=== PATIENT | male | born 1935 | race Caucasian/White ===

== ENCOUNTER 2019-02-09 11:54 | Inpatient (IN) | payer MEDICARE, MEDICAID ==
[~2019-02-09] VITALS: Ht 162.6 cm; Wt 61.7 kg
[~2019-02-09 11:54] MED LIST: ATOR20TA PO; CEFT1VIA15 IV; CHOL10002 PO; CLOP75TA15 PO; DULO30CA52 PO; GABA-534 PO; GLIM4TAB37 PO; LEVO50TA8 PO; METF-440 PO; OLME40TA12 PO; PREG75CA PO; TAMS0.4C34 PO
--- NOTE | 2019-02-09 12:03 | NUR ---
"bib family for confusion, visual hallucinations x 8 days. hx frequent UTI" pt awake, alert, -sob. nad noted, vss, pending md lenz
[2019-02-09 12:26] LABS: BASOPHILS # (AUTO) 0.1 /CMM (0.0-0.2); BASOPHILS % (AUTO) 0.8 % (0.0-2.0); EOSINOPHILS % (AUTO) 2.8 % (0.0-6.0); HEMATOCRIT 36 % (39-51); HEMOGLOBIN 12.2 g/dL (13.5-17.5); LYMPHOCYTES # (AUTO) 3.6 /CMM (0.8-4.8); LYMPHOCYTES % (AUTO) 37.2 % (20.0-44.0); MEAN CORPUSCULAR HGB CONC 34 g/dl (31.0-36.0); MEAN CORPUSCULAR VOLUME 92 fL (80-96); MONOCYTES # (AUTO) 0.6 /CMM (0.1-1.30); MONOCYTES % (AUTO) 6.6 % (2.0-12.0); NEUTROPHILS % (AUTO) 52.6 % (43.0-81.0); PLATELET COUNT (AUTO) 249 /CMM (150-450); RED BLOOD CELL COUNT(AUTO) 3.96 MIL/uL (4.5-6.0); WHITE BLOOD COUNT (AUTO) 9.6 K/uL (4.3-11.0)
[2019-02-09] MEDS ORDERED: IV NS 0.9% 1,000 ML BAG IV ONE (12:30)
[2019-02-09 12:34] LABS: CALCIUM, SERUM 9.6 mg/dL (8.5-10.1); CARBON DIOXIDE 22 mmol/L (21-32); CHLORIDE 102 mmol/L (98-107); CREATININE 1.6 mg/dL (0.6-1.3); GLUCOSE 312 mg/dL (74-106); POTASSIUM 4.6 mmol/L (3.5-5.1); SODIUM SERUM 134 mmol/L (136-145); UREA NITROGEN, BLOOD 26 mg/dL (7-18)
[2019-02-09 12:40] LABS: ALANINE AMINOTRANSFERASE 17 U/L (12-78); ALBUMIN 3.1 g/dL (3.4-5.0); ALKALINE PHOSPHATASE 213 U/L (46-116); ASPARTATE AMINOTRANSFERASE 41 U/L (15-37); BILIRUBIN,DIRECT 0.1 mg/dL (0.0-0.2); BILIRUBIN,TOTAL 0.3 mg/dL (0.2-1.0); TOTAL PROTEIN, SERUM 7.2 g/dL (6.4-8.2)
[2019-02-09] MEDS ORDERED: MELO-107 PO (13:13)
[2019-02-09] MEDS ORDERED: AMLO5TAB9 PO (13:13)
[2019-02-09] MEDS ORDERED: GLIP10TA11 PO (13:13)
[2019-02-09] MEDS ORDERED: SULF1TAB48 PO (13:13)
[2019-02-09] MEDS ORDERED: FINA5TAB3 PO (13:13)
[2019-02-09] MEDS ORDERED: CETI10TA14 PO (13:13)
--- NOTE | 2019-02-09 13:51 | NUR ---
report given damon leon for holly pt will be transported to 1st floor
[2019-02-09] MEDS ORDERED: Z GUARD REMEDY 2 OZ OINT TP PRN (14:00)
[2019-02-09] MEDS ORDERED: MAGNESIUM HYDROXIDE 30 ML UDC PO PRN (14:00)
[2019-02-09] MEDS ORDERED: ONDANSETRON HCL/PF 4 MG/2 ML VIAL IVP PRN (14:00)
[2019-02-09] MEDS ORDERED: MORPHINE SULFATE INJ 2 MG/ML DISP.SYRIN IV PRN (14:00)
[2019-02-09] MEDS ORDERED: ACETAMINOPHEN 325 MG TABLET PO PRN (14:00)
[2019-02-09] MEDS ORDERED: MAG HYDROX/AL HYDROX/SIMETH 30 ML UDC PO PRN (14:00)
--- NOTE | 2019-02-09 14:25 | NUR ---
MS WINDOW GLASS CUTTER OFF NOTE: PATIENT ARRIVED TO UNIT WITH AND STAFF VIA GURNEY.UNDERSTANDS S[place] SUDANESE BUT PRIMARY LANGUAGE IS AZERBAIJANI. APPEARS COOPERATIVE AND PLEASANT. NOTED WITH LOWER EXTREMITY MILD WEAKNESS UPON TRANSFERRING TO BED. TOLERATING ROOM AIR, NO SOB AND NOT IN DISTRESS. NO PAIN REPORTED. WITH IV SITE ON RFA G18, SITE CLEAN AND SECURE. ORDERS TO BE VERIFIED AND ADMISSION ASSESSMENT TO BE MADE.
[2019-02-09] MEDS: BLOOD SUGAR DIAGNOSTIC 1 EACH STRIP VI SCH ×3 (14:30→22:01)
[2019-02-09] MEDS ORDERED: DEXTROSE 50%-WATER 50 ML DISP.SYRIN IV PRN (14:30)
--- NOTE | 2019-02-09 14:30 | NUR ---
pt transported to 1st floor
--- NOTE | 2019-02-09 15:10 | NUR ---
WEBMETHODS ARCHITECT NOTE: INFORMED BY DANIEL CEE NP ABOUT PATIENT'S CHANGE OF CONDITION DUE TO RESULTS FOUND FROM CT SCAN. PATIENT ADMITTED TO TELEMETRY AND STROKE ASSESSMENTS TO BE DONE. 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 NO BELONGINGS WERE CHECKED IN, PATIENT ASSESSED FOR SKIN, STATES THAT HE IS CLEAR EXCEPT FOR THE SCABS ON THE RIGHT FOREAM. ASSESSMENTS MADE, PATIENT IS ALERT, ORIENTED X2 BUT STATES THAT HE HAS BEEN NORMAL FOR HIM AND HAS BEEN EXHIBITING THAT BEHAVIOR FOR THE PAST COUPLE OF DAYS. VASCULAR SONOGRAPHER RESULTS IN SINUS RHYTHM WITH PVCS. PATIENT FOR FURTHER EVALUATION UNDER DR. PACKER.
[2019-02-09 16:00] VITALS: BP 111/69
--- NOTE | 2019-02-09 18:00 | NUR ---
RN NOTE: PATIENT REFUSED INSULIN DOSE
[2019-02-09] MEDS: glipiZIDE 10 MG TABLET PO SCH (18:17)
[2019-02-09] MEDS: DULOXETINE HCL 30 MG CAPSULE.DR PO SCH (18:17)
--- NOTE | 2019-02-09 19:25 | NUR ---
TELE/RN NOTES Patient in bed, Awake, A/O x2 with periods of confusion and disorientation, family at bed side, No S/S of acute distress noted, breathing even and unlabored, No SOB noted, Denies any pain at this time, on tele monitoring with sinus rhythm. IV sites with no s/s of infection, infiltration, with fluids as ordered. Safety maintained, bed at the lowest locked position, bed alarm on. Clean and dry. Will continue to monitor as per plan of care.
--- NOTE | 2019-02-09 19:30 | NUR ---
COMMUNITY INTEGRATION SPECIALIST CLOSING NOTE: PATIENT IN BED. AWAKE AND RESPONSIVE IN BED. ON FALL PRECAUTIONS DUE TO HISTORY AND BEHAVIOR OF TRYING TO GET OUT DESPITE REMINDERS GIVEN. SWALLOW EVAL AND NIHSS SCALE DONE. ASSESSMENTS YIELDED NORMAL. ON IV NS @ 75MLS/HR VIA RAC G22. NO PAIN REPORTED. DANIEL CEE NP AWARE OF PATIENT'S CURRENT CONDITION, NEUROLOGY REFERRALS MADE AND PLAVIX PRESCRIBED FOR PATIENT. BED LOCKED, LOW AND AT SEMI-SANDOVAL'S POSITION, BED ALARM ON. CALL LIGHT IN REACH. PATIENT IN STABLE CONDITION, ENDORSED TO ONCOMING SHIFT FOR GINETTE.
[2019-02-09 20:00] VITALS: BP 112/69
[2019-02-09 20:32] LABS: CREATININE, URINE 107.9 MG/DL (30.0-125.0); URINE TOTAL PROTEIN 58.9 mg/dL (0-11.9)
[2019-02-09 20:40] LABS: APPEARANCE,URINE CLEAR (CLEAR); BILIRUBIN,URINE NEGATIVE (NEGATIVE); BLOOD, URINE NEGATIVE Ery/uL (NEGATIVE); COLOR,URINE YELLOW (YELLOW); KETONES,URINE TRACE (NEGATIVE); LEUKOCYTE ESTERASE ,URINE NEGATIVE (NEGATIVE); NITRITE, URINE NEGATIVE (NEGATIVE); PROTEIN,URINE NEGATIVE (NEGATIVE); UGLUCOSE 500 MG/DL mg/dL (NEGATIVE); UROBILINOGEN,URINE 0.2 EU/dL (0.2)
[2019-02-09 20:51] LABS: BACTERIA,URINE None seen /HPF (None Seen); EOSINOPHIL,URINE None Seen; RBC,URINE 0-2 /HPF (0-2); SQUAMOUS EPITHELIAL CELL,UR Few /HPF (None Seen); WBC,URINE 0-2 /HPF (0-3)
[2019-02-09] MEDS: TAMSULOSIN 0.4 MG CAP.SR.24H PO SCH (22:07)
[2019-02-09] MEDS: *INSULIN REGULAR(HUMULIN R)HUM 100 UNIT/ML VIAL SQ PRN (22:15)
[2019-02-10] VITALS: BP 131/75
--- NOTE | 2019-02-10 00:15 | NUR ---
Patient noted with, trying to get out the bed without assistance and also trying to pull out the IV line, Assisted patient back in bed, reality orientation provided, safety maintained, encouraged to use call light for assistance, patient confused and keep trying to get out of the bed. Called Dr Junior at this time with new order for 1 to 1 sitter. Noted and carried out.
[2019-02-10 04:00] VITALS: BP 118/62
[2019-02-10] MEDS: IV NS 0.9% 1,000 ML IV PRN (05:40)
--- NOTE | 2019-02-10 06:50 | NUR ---
TELE/RN NOTES Patient remained in bed, Awake at this time, sitter at bed side, A/O x1-2 with periods of confusion and disorientation, montenegrin speaking. No S/S of acute distress noted, breathing even and unlabored, No SOB noted, Denies any pain at this time, on tele monitoring with sinus rhythm. IV sites with no s/s of infection, infiltration, with fluids as ordered. Safety maintained, bed at the lowest locked position, bed alarm on. Clean and dry. Due meds given as ordered, tolerated well. Endorse to AM shift for GINETTE.
[2019-02-10 06:53] LABS: BASOPHILS # (AUTO) 0.1 /CMM (0.0-0.2); BASOPHILS % (AUTO) 0.4 % (0.0-2.0); EOSINOPHILS % (AUTO) 1.8 % (0.0-6.0); HEMATOCRIT 35 % (39-51); HEMOGLOBIN 11.6 g/dL (13.5-17.5); LYMPHOCYTES # (AUTO) 6.7 /CMM (0.8-4.8); LYMPHOCYTES % (AUTO) 51.6 % (20.0-44.0); MEAN CORPUSCULAR HGB CONC 33 g/dl (31.0-36.0); MEAN CORPUSCULAR VOLUME 92 fL (80-96); MONOCYTES # (AUTO) 0.8 /CMM (0.1-1.30); MONOCYTES % (AUTO) 6.1 % (2.0-12.0); NEUTROPHILS # (AUTO) 5.2 /CMM (1.8-8.9); NEUTROPHILS % (AUTO) 40.1 % (43.0-81.0); PLATELET COUNT (AUTO) 249 /CMM (150-450); RED BLOOD CELL COUNT(AUTO) 3.79 MIL/uL (4.5-6.0)
--- NOTE | 2019-02-10 07:10 | NUR ---
RN INITIAL NOTE PATIENT IN BED, ASLEEP BUT EASILY AROUSABLE TO NAME AND TOUCH. AZERI SPEAKING. ON ROOM AIR. NO COMPLAINS OF ANY PAIN NOR SOB AT THIS TIME. ON TELE MONITOR, . HAS A RIGHT FA #18 WITH NS AT 75 ML/HR. AND A LEFT HAND #22. PT/OT PENDING. SITTER AT BEDSIDE. BED LOCKED AND IN LOWEST POSITION. CALL LIGHT WITHIN REACH. WILL CONTINUE TO MONITOR
[2019-02-10 07:17] LABS: ALBUMIN 2.9 g/dL (3.4-5.0); BILIRUBIN,TOTAL 0.3 mg/dL (0.2-1.0); CALCIUM, SERUM 8.9 mg/dL (8.5-10.1); CREATININE 1.3 mg/dL (0.6-1.3); PHOSPHORUS 2.6 mg/dL (2.5-4.9); POTASSIUM 4.4 mmol/L (3.5-5.1); TOTAL PROTEIN, SERUM 6.8 g/dL (6.4-8.2)
[2019-02-10 07:23] LABS: THYROID STIMULATING HORMONE 0.943 uIU/mL (0.358-3.74)
[2019-02-10 07:45] LABS: MAGNESIUM 1.2 mg/dL (1.8-2.4)
[2019-02-10] MEDS: BLOOD SUGAR DIAGNOSTIC 1 EACH STRIP VI SCH ×4 (07:55→21:26)
[2019-02-10 08:00] VITALS: BP 120/70
[2019-02-10] MEDS: PANTOPRAZOLE 40 MG TABLET.DR PO SCH (08:17)
[2019-02-10] MEDS: DULOXETINE HCL 30 MG CAPSULE.DR PO SCH ×2 (08:24→16:43)
[2019-02-10] MEDS: glipiZIDE 10 MG TABLET PO SCH ×2 (08:24→16:43)
[2019-02-10] MEDS: CLOPIDOGREL BISULFATE 75 MG TABLET PO SCH (08:26)
[2019-02-10] MEDS: LEVOTHYROXINE SODIUM 50 MCG TABLET PO SCH (08:26)
[2019-02-10] MEDS: AMLODIPINE BESYLATE 5 MG TABLET PO SCH (08:26)
[2019-02-10] MEDS: FINASTERIDE (5 MG) 5 MG TABLET PO SCH (08:27)
[2019-02-10] MEDS: Magnesium 1GM/D5W 100ML PREMIX 100 ML IV SCH ×4 (09:17→12:37)
[2019-02-10] MEDS: HYDROCODONE/APAP 5/325MG 1 EACH TABLET PO PRN (10:19)
[2019-02-10 12:00] VITALS: BP 141/75
[2019-02-10] MEDS: *INSULIN REGULAR(HUMULIN R)HUM 100 UNIT/ML VIAL SQ PRN (12:15)
[2019-02-10] MEDS: CEFTRIAXONE 1 G in IV D5W 50 ML IV SCH (14:24)
[2019-02-10 16:00] VITALS: BP 104/60
[2019-02-10] MEDS: INSULIN REGULAR, HUMAN 100 UNIT/ML 3 ML VIAL SQ PRN (17:58)
--- NOTE | 2019-02-10 18:49 | NUR ---
RN CLOSING NOTE PATIENT IN BED, AWAKE AND ALERTX4. PATIENT ACCIDENTALLY PULLED HIS IV SITE OUT. REMOVED AND CHANGED TO RIGHT HAND #22 WITH NS AT 75 ML/HR. ALL MEDS ARE GIVEN. ALL NEEDS MET. FAMILY WAS AT BEDSIDE. PATIENT INSULIN COVERAGE GIVEN. PT/OT HAS SEEN PATIENT. SWALLOW EVAL DONE. ECHO DONE. MG HAS BEEN REPLACED WITH 4 BAGS. BED LOCKED AND IN LOWEST POSITION. CALL LIGHT WITHIN REACH. WILL ENDORSE TO NOC SHIFT FOR GINETTE
--- NOTE | 2019-02-10 19:25 | NUR ---
TELE/RN NOTES Patient Received in bed, Awake, A/O x2 with periods of confusion and disorientation, sitter at bed side, No S/S of acute distress noted, breathing even and unlabored, No SOB noted, Denies any pain at this time, on tele monitoring with sinus rhythm. IV sites with no s/s of infection, infiltration, with fluids as ordered. Safety maintained, bed at the lowest locked position, bed alarm on. Clean and dry. Will continue to monitor as per plan of care.
[2019-02-10 20:00] VITALS: BP 130/78
[2019-02-10] MEDS: TAMSULOSIN 0.4 MG CAP.SR.24H PO SCH (21:27)
[2019-02-11] VITALS: BP 133/82
[2019-02-11] MEDS: IV NS 0.9% 1,000 ML IV PRN (01:25)
[2019-02-11 04:00] VITALS: BP 136/84
--- NOTE | 2019-02-11 06:55 | NUR ---
TELE/RN NOTES Patient remained in bed, Awake at this time, sitter at bed side, A/O to his base line , american speaking. No S/S of acute distress noted, breathing even and unlabored, No SOB noted, Denies any pain at this time, on tele monitoring with sinus rhythm. IV sites with no s/s of infection, infiltration, with fluids as ordered. Safety maintained, bed at the lowest locked position, bed alarm on. Clean and dry. Due meds given as ordered, tolerated well. Wll endorse to AM shift for GINETTE. Addendum: 02/11/19 at 0704 by ABDULLAHI FAIRBANKS RN Call light within reach.
[2019-02-11 07:02] LABS: BASOPHILS # (AUTO) 0.1 /CMM (0.0-0.2); BASOPHILS % (AUTO) 0.5 % (0.0-2.0); EOSINOPHILS % (AUTO) 3.5 % (0.0-6.0); HEMATOCRIT 34 % (39-51); HEMOGLOBIN 11.3 g/dL (13.5-17.5); LYMPHOCYTES # (AUTO) 5.4 /CMM (0.8-4.8); LYMPHOCYTES % (AUTO) 54.8 % (20.0-44.0); MEAN CORPUSCULAR HGB CONC 34 g/dl (31.0-36.0); MEAN CORPUSCULAR VOLUME 92 fL (80-96); MONOCYTES # (AUTO) 0.5 /CMM (0.1-1.30); MONOCYTES % (AUTO) 4.7 % (2.0-12.0); NEUTROPHILS # (AUTO) 3.6 /CMM (1.8-8.9); NEUTROPHILS % (AUTO) 36.5 % (43.0-81.0); PLATELET COUNT (AUTO) 241 /CMM (150-450); RED BLOOD CELL COUNT(AUTO) 3.66 MIL/uL (4.5-6.0); WHITE BLOOD COUNT (AUTO) 9.9 K/uL (4.3-11.0)
[2019-02-11 07:14] LABS: CALCIUM, SERUM 8.1 mg/dL (8.5-10.1); MAGNESIUM 1.6 mg/dL (1.8-2.4); PHOSPHORUS 2.1 mg/dL (2.5-4.9); POTASSIUM 4.3 mmol/L (3.5-5.1)
[2019-02-11] MEDS: LEVOTHYROXINE SODIUM 50 MCG TABLET PO SCH (07:53)
[2019-02-11] MEDS: PANTOPRAZOLE 40 MG TABLET.DR PO SCH (07:53)
[2019-02-11] MEDS: BLOOD SUGAR DIAGNOSTIC 1 EACH STRIP VI SCH ×4 (07:53→21:02)
[2019-02-11] MEDS: DULOXETINE HCL 30 MG CAPSULE.DR PO SCH ×2 (08:37→16:30)
[2019-02-11] MEDS: FINASTERIDE (5 MG) 5 MG TABLET PO SCH (08:37)
[2019-02-11] MEDS: AMLODIPINE BESYLATE 5 MG TABLET PO SCH (08:37)
[2019-02-11] MEDS: glipiZIDE 10 MG TABLET PO SCH ×2 (08:37→16:30)
[2019-02-11] MEDS: CLOPIDOGREL BISULFATE 75 MG TABLET PO SCH (08:37)
[2019-02-11] MEDS: INSULIN REGULAR, HUMAN 100 UNIT/ML 3 ML VIAL SQ PRN ×2 (08:39→12:04)
[2019-02-11 08:54] VITALS: BP 130/73
[2019-02-11] MEDS ORDERED: NEUTRA PHOS 1 POWD.PACKET PO ONE (10:00)
[2019-02-11] MEDS: Magnesium 1GM/D5W 100ML PREMIX 100 ML IV SCH ×2 (10:07→11:08)
[2019-02-11] MEDS: CEFTRIAXONE 1 G in IV D5W 50 ML IV SCH (13:06)
[2019-02-11 16:00] VITALS: BP 128/76
--- NOTE | 2019-02-11 18:53 | NUR ---
TELE/RN CLOSING NOTES PATIENT CONTINUES TO REMAIN IN STABLE CONDITION THROUGHOUT THE SHIFT. PROVIDED COMFORT AND SAFETY. 1 ON 1 SITTER AT BEDSIDE AT ALL TIMES. IV ACCESS ON R HAND INTACT AND PATENT. FLUSHING WELL. NO S/S OF INFECTION OR INFILTRATION. PATIENT ABLE TO TOLERATE MEALS AND MEDS WELL. ALL NEEDS ANTICIPATED. CALL LIGHT WITHIN REACHED. BED LOCKED AND IN LOWEST POSITION. WILL CONTINUE TO MONITOR CLOSELY.
[2019-02-11 20:00] VITALS: BP 132/68
[2019-02-11] MEDS: TAMSULOSIN 0.4 MG CAP.SR.24H PO SCH (21:03)
[2019-02-11] MEDS: HYDROCODONE/APAP 5/325MG 1 EACH TABLET PO PRN (21:07)
[2019-02-11] MEDS: *INSULIN REGULAR(HUMULIN R)HUM 100 UNIT/ML VIAL SQ PRN (21:08)
--- NOTE | 2019-02-11 23:00 | NUR ---
RN NOTE RECEIVED PT FROM FREDA SIMMONS. PT WITH 1:1 SITTER AND CURRENTLY BEING ASSISTED TO BATHROOM. ALERT AND ORIENTED X 3. NO SIGNS OF ACUTE DISTRESS. PT DENIES PAIN OR DISCOMFORT. IV ON RIGHT HAND, PATENT AND FLUSHING WELL. WILL CONTINUE TO MONITOR.
[2019-02-12 04:00] VITALS: BP 130/66
[2019-02-12 06:22] LABS: BASOPHILS % (AUTO) 0.5 % (0.0-2.0); EOSINOPHILS % (AUTO) 4.4 % (0.0-6.0); HEMATOCRIT 34 % (39-51); HEMOGLOBIN 11.4 g/dL (13.5-17.5); LYMPHOCYTES # (AUTO) 5.9 /CMM (0.8-4.8); LYMPHOCYTES % (AUTO) 61.3 % (20.0-44.0); MEAN CORPUSCULAR HGB CONC 34 g/dl (31.0-36.0); MEAN CORPUSCULAR VOLUME 91 fL (80-96); MONOCYTES # (AUTO) 0.6 /CMM (0.1-1.30); NEUTROPHILS # (AUTO) 2.7 /CMM (1.8-8.9); NEUTROPHILS % (AUTO) 27.8 % (43.0-81.0); PLATELET COUNT (AUTO) 270 /CMM (150-450); RED BLOOD CELL COUNT(AUTO) 3.71 MIL/uL (4.5-6.0); WHITE BLOOD COUNT (AUTO) 9.6 K/uL (4.3-11.0)
[2019-02-12 06:42] LABS: CALCIUM, SERUM 8.4 mg/dL (8.5-10.1); CREATININE 0.9 mg/dL (0.6-1.3); MAGNESIUM 1.7 mg/dL (1.8-2.4); PHOSPHORUS 2.6 mg/dL (2.5-4.9); POTASSIUM 4.1 mmol/L (3.5-5.1)
--- NOTE | 2019-02-12 07:21 | NUR ---
RN CLOSING NOTE PT IS IN BED AWAKE AND ALERT. NO SOB NOTED WHILE ON ROOM AIR. NO INDICATIONS OF PAIN OR DISCOMFORT. 1:1 SITTER AT BEDSIDE. BED IN LOW POSITION. CALL LIGHT WITHIN REACH. ENDORSED TO MORNING SHIFT.
--- NOTE | 2019-02-12 07:31 | NUR ---
RN OPENING NOTES RECEIVED PATIENT RESTING IN BED COMFORTABLY, EASILY AROUSED. HE IS AOX2 (HARD TO TELL BECAUSE PATIENT SPEAKS SLOVENIAN) VERBAL, AND AMBULATORY WITH 1:1 SITTER AT BEDSIDE. HE IS ON RA, TOLERATING WELL, NO S/SX OF RESP DISTRESS OR SOB. SKIN IS INTACT, SCAB IS PRESENT ON RFA. HE IS ON CARDIAC DIET, TOLERATING WELL. IV SITE ON R HAND 22 G IS PATENT AND INTACT. SAFETY MEASURES HAVE BEEN IMPLEMENTED, CALL LIGHT IS WITHIN REACH, BED IS IN LOWEST AND LOCKED POSITION, SIDE RAILS UP X2, WILL CONTINUE TO MONITOR FOR ANY CHANGES.
[2019-02-12] MEDS: PANTOPRAZOLE 40 MG TABLET.DR PO SCH (07:40)
[2019-02-12] MEDS: LEVOTHYROXINE SODIUM 50 MCG TABLET PO SCH (07:40)
[2019-02-12] MEDS: HYDROCODONE/APAP 5/325MG 1 EACH TABLET PO PRN (07:52)
[2019-02-12] MEDS: BLOOD SUGAR DIAGNOSTIC 1 EACH STRIP VI SCH ×2 (07:55→11:48)
[2019-02-12 08:00] VITALS: BP 134/72
[2019-02-12] MEDS: FINASTERIDE (5 MG) 5 MG TABLET PO SCH (08:44)
[2019-02-12] MEDS: glipiZIDE 10 MG TABLET PO SCH (08:44)
[2019-02-12] MEDS: CLOPIDOGREL BISULFATE 75 MG TABLET PO SCH (08:44)
[2019-02-12] MEDS: DULOXETINE HCL 30 MG CAPSULE.DR PO SCH (08:44)
[2019-02-12] MEDS: Magnesium 1GM/D5W 100ML PREMIX 100 ML IV SCH ×2 (08:45→10:06)
[2019-02-12 08:47] VITALS: BP 122/64
[2019-02-12] MEDS: AMLODIPINE BESYLATE 5 MG TABLET PO SCH (08:47)
[2019-02-12] MEDS: INSULIN REGULAR, HUMAN 100 UNIT/ML 3 ML VIAL SQ PRN (12:29)
[2019-02-12] MEDS: CEFTRIAXONE 1 G in IV D5W 50 ML IV SCH (13:06)
--- NOTE | 2019-02-12 16:06 | NUR ---
RN NOTES PATIENT HAS BEEN DC'D. EXIT CARE WAS UTILIZED DURING DC PROCESS. INSTRUCTIONS WERE GIVEN TO PRIMARY CAREGIVER "", SHE VERBALIZED UNDERSTANDING. NO NEW PRESCRIPTIONS WERE GIVEN. PT BELONINGS LIST WAS CHECKED OFF, IV SITE WAS REMOVED PRIOR TO LEAVING, ID BAND WAS REMOVED. PT WAS WHEELED OUT TO THE MAIN LOBBY BY A TWISTER OPERATOR, WHERE THEY LEFT VIA PRIVATE CAR
== END 2019-02-12 15:25 | disposition home or self-care (01) | DRG 64 ==
LOC: ER 12:03 → MEDSG1 13:11 → TELE1 20:47 → MEDSG1 02-11 19:09
PROVIDERS: ADMIT Nurse Practitioner Acute Care; ATTEND Nurse Practitioner Acute Care
DX: I63.9 Cerebral infarction, unspecified (principal); G93.41 Metabolic encephalopathy; N17.0 Acute kidney failure with tubular necrosis; D68.59 Other primary thrombophilia; E44.1 Mild protein-calorie malnutrition; E87.1 Hypo-osmolality and hyponatremia; N39.0 Urinary tract infection, site not specified; R40.2142 Coma scale, eyes open, spontaneous, at arrival to emergency department; R40.2242 Coma scale, best verbal response, confused conversation, at arrival to emergency department; R40.2362 Coma scale, best motor response, obeys commands, at arrival to emergency department; R29.700 NIHSS score 0; E03.9 Hypothyroidism, unspecified; Z68.23 Body mass index [BMI] 23.0-23.9, adult; I10 Essential (primary) hypertension; M19.90 Unspecified osteoarthritis, unspecified site; Z88.8 Allergy status to other drugs, medicaments and biological substances; Z79.84 Long term (current) use of oral hypoglycemic drugs; Z79.899 Other long term (current) drug therapy; Z79.01 Long term (current) use of anticoagulants; D64.9 Anemia, unspecified; E83.42 Hypomagnesemia; N28.1 Cyst of kidney, acquired; N40.0 Benign prostatic hyperplasia without lower urinary tract symptoms; Z79.02 Long term (current) use of antithrombotics/antiplatelets; Z87.440 Personal history of urinary (tract) infections; Z90.79 Acquired absence of other genital organ(s); F01.50 Vascular dementia, unspecified severity, without behavioral disturbance, psychotic disturbance, mood disturbance, and anxiety; D63.8 Anemia in other chronic diseases classified elsewhere; Z98.890 Other specified postprocedural states; Z74.09 Other reduced mobility; B96.89 Other specified bacterial agents as the cause of diseases classified elsewhere; E83.39 Other disorders of phosphorus metabolism; E86.1 Hypovolemia; I67.2 Cerebral atherosclerosis; I70.0 Atherosclerosis of aorta
CPT/HCPCS: 36415; 70450-TC; 71045-TC; 76770-TC; 80048-TC; 80053-TC; 80061-TC; 80076-TC; 81000-TC; 82570-TC; 82962-TC; 83540-TC; 83735-TC; 84100-TC; 84155-TC; 84300-TC; 84443-TC; 84484-TC; 85025-TC; 85652-TC; 85730-TC; 87081-TC; 87086-TC; 92611-TC; 93307-TC; 97116-TC; 97530-TC; 97535-TC; G0378; J0696; J1815; J3475; J7030; J7060